=== PATIENT | female | born 1990 | race Caucasian/White ===

== ENCOUNTER 2017-03-06 15:49 | Inpatient (IN) | payer OTHER ==
[~2017-03-06 15:49] MED LIST: ALBUAER3 INH; CEPH-460 PO; DEXAMETHASONE SOD PHOS 4 MG/ML VIAL IV ONE; LACTATED RINGER'S 1000 ML INJ 1,000 ML IV ONE; MORPHINE SULFATE PF 5 MG/10 ML VIAL EPIDURAL ONE; ONDANSETRON HCL 4 MG/2 ML VIAL IV PUSH ONE; OXYTOCIN 10 UNIT/ML AMP IV ONE; PHENYLEPH/NS 1000 MCG/10 ML SYR IV ONE; PRED20 PO; ZOFR4TAB3 SL; ePHEDrine/NS 25 MG/5 ML SYR IV ONE
--- NOTE | 2017-03-06 16:14 | PD ---
HPI Chief Complaint decreased FM sent from [place] Date Seen: Mar 06, 2017 Time Seen: 16:14 Travel History International Travel<30 Days: No Contact w/Intl Traveler<30Days: No Known Affected Area: No Allergies-Medications (Allergen,Severity, Reaction): Coded Allergies: amoxicillin (Verified Allergy, Severe, 03/06/17) aspirin (Verified Allergy, Severe, 03/06/17) azithromycin (Verified Allergy, Severe, 03/06/17) penicillin G (Verified Allergy, Severe, 03/06/17) Home Meds Active Scripts Cephalexin (Keflex) 500 Mg Capsule, 500 MG PO Q6H for Infection, #28 CAP 0 Refills Prov:Chitar Montgomery MD 02/27/17 Prednisone (Prednisone) 20 Mg Tab, 40 MG PO DAILY for 5 Days, #10 TAB 0 Refills Take 40 mg (2 tablets) daily for 5 days Prov:Ar Silva MD 02/05/17 Reported Medications Albuterol 8.5 GM Inh (Proair Hfa 8.5 GM Inh) 90 Mcg/Act Aer, 2 PUFF INH Q4-6H Y for SHORTNESS OF BREATH, #1 INHALER 0 Refills 108 mcg/actuation 02/05/17 Discontinued Scripts Ondansetron Odt (Zofran Odt) 4 Mg Tab, 4 MG SL Q6HR Y for Nausea/Vomiting, #6 TAB 0 Refills Prov:Chitra Montgomery MD 02/27/17 Physical Exam Narrative GENERAL: Well-nourished, well-developed patient. SKIN: Warm and dry. HEAD: Normocephalic and atraumatic. EYES: No scleral icterus. No injection or drainage. ENT: No nasal drainage noted. Mucous membranes pink. Airway patent. NECK: Supple, trachea midline. No JVD. CARDIOVASCULAR: Regular rate and rhythm without murmurs, gallops, or rubs. RESPIRATORY: Breath sounds equal bilaterally. No accessory muscle use. BREASTS: Bilateral exam showed no masses , no retractions, no nipple discharge. ABDOMEN/GI: Abdomen soft, non-tender, bowel sounds present, no rebound, no guarding Gravid to [-] weeks size Fundal Height: [-] GENITOURINARY: External Genitalia: intact and normal in appearance BUS glands: [-] Cervix: [-] Dilatation: [-] Effacement: [-] Station: [-] Presentation: [-] Membranes: [intact or ruptured] Uterine Contractions: [-] FHT's: Category: [-] Baseline: [-] Reactive: [-] Variability: [-] Decels: [-] EXTREMITIES: No cyanosis or edema. BACK: Nontender without obvious deformity. No CVA tenderness. NEUROLOGICAL: Awake and alert. Motor and sensory grossly within normal limits. Five out of 5 muscle strength in all muscle groups. Normal speech. Data Data Orders Orders Us Ob Bpp Wo Nst (03/06/17 16:12) Donald Swartz II, MD Mar 06, 2017 16:14
[2017-03-06] MEDS ORDERED: LACTATED RINGER'S 1000 ML INJ 1,000 ML IV ONE (16:28)
[2017-03-06 16:42] LABS: AUTOMATED NEUTROPHIL # 10.3 TH/MM3 (1.8-7.7); BASOPHIL # 0.1 TH/MM3 (0-0.2); BASOPHIL % 0.6 % (0.0-2.0); EOSINOPHIL # 0.4 TH/MM3 (0-0.4); EOSINOPHIL % 2.6 % (0.0-4.0); HEMATOCRIT 33.7 % (35.0-46.0); HEMO FLAGS DIFF FINAL; LYMPH % 16.5 % (9.0-44.0); LYMPHOCYTE # 2.3 TH/MM3 (1.0-4.8); MEAN CELL VOLUME 84.8 FL (80.0-100.0); MEAN CORPUSCULAR HEMOGLOBIN 27.5 PG (27.0-34.0); MEAN CORPUSCULAR HGB CONC 32.5 % (32.0-36.0); MONO % 6.7 % (0.0-8.0); NEUT % 73.6 % (16.0-70.0); PLATELET COUNT 337 TH/MM3 (150-450); RED BLOOD COUNT 3.97 MIL/MM3 (4.00-5.30); RED CELL DISTRIBUTION WIDTH 14.8 % (11.6-17.2)
--- NOTE | 2017-03-06 16:45 | HHI.HP ---
HPI Chief Complaint Decreased movement for here from [place] emergency room Date Seen: Mar 06, 2017 Time Seen: 16:40 Travel History International Travel<30 Days: No Contact w/Intl Traveler<30Days: No Known Affected Area: No History of Present Illness HPI Patient is 26-year-old white female at 35-36 weeks is her care at [place] presents complaining of decreased movement. She had definite movement yesterday but today is noted no movement whatsoever. She' s had an uneventful obstetric course to date and had care [place] was planning to deliver there vaginally says she's delivered her other 3 vaginally. However today here on OB ED she was transferred from [place] here she has repetitive large variable decelerations on her strip. The variability is good however she sporadically has a large deep drop in the heart rate stays down a minute or so it comes back up she comes repetitively over the last 30 minutes Weeks Gestation: 36 Para: 3 : 4 History Past Medical History Narrative Medical asthma uses inhaler Obstetric History Obstetric History 3 vaginal deliveries Past Surgical History Narrative Surgical LEEP for cx dysplasia Social History Alcohol Use: No Tobacco Use: No Substance Abuse: No Allergies-Medications (Allergen,Severity, Reaction): Coded Allergies: amoxicillin (Verified Allergy, Severe, 03/06/17) aspirin (Verified Allergy, Severe, 03/06/17) azithromycin (Verified Allergy, Severe, 03/06/17) penicillin G (Verified Allergy, Severe, 03/06/17) Home Meds Active Scripts Cephalexin (Keflex) 500 Mg Capsule, 500 MG PO Q6H for Infection, #28 CAP 0 Refills Prov:Chitra Montgomery MD 02/27/17 Prednisone (Prednisone) 20 Mg Tab, 40 MG PO DAILY for 5 Days, #10 TAB 0 Refills Take 40 mg (2 tablets) daily for 5 days Prov:Ar Silva MD 02/05/17 Reported Medications Albuterol 8.5 GM Inh (Proair Hfa 8.5 GM Inh) 90 Mcg/Act Aer, 2 PUFF INH Q4-6H Y for SHORTNESS OF BREATH, #1 INHALER 0 Refills 108 mcg/actuation 02/05/17 Discontinued Scripts Ondansetron Odt (Zofran Odt) 4 Mg Tab, 4 MG SL Q6HR Y for Nausea/Vomiting, #6 TAB 0 Refills Prov:Chitra Montgomery MD 02/27/17 Review of Systems General / Constitutional: No: Fever, Weight Gain, Chills, Other Eyes: No: Diploplia, Blurred Vision, Visual changes, Pain, Photophobia HENT: No: Headaches, Vertigo, Lightheadedness Cardiovascular: No: Irregular Rhythm, Chest Pain or Discomfort, Palpitations, Tachycardia, Syncope, Varicosities, Edema, Cyanosis Respiratory: No: Cough, Short of Breath, Other Gastrointestinal: No: Nausea, Vomiting, Diarrhea Genitourinary: No: Decreased Urinary Output, Oliguria Musculoskeletal: No: Limited ROM, Weakness, Cramping, Edema, Pain Skin: No Rash, No Itching, No Dryness, No Lumps, No Change in Pigmentation, No Change in Nails, No Alopecia, No Lesions Neurologic: No: Weakness, Dizziness, Syncope, Focal Abnormalities, Coordination Problem, Headache, Slurred Speech, Seizures Psychiatric: No: Depression, Suicidal Ideations, Homicidal Ideation Endocrine: No: Heat Intolerance, Cold Intolerance, Polydipsia, Polyuria, Other Physical Exam Narrative GENERAL: Well-nourished, well-developed patient. SKIN: Warm and dry. HEAD: Normocephalic and atraumatic. EYES: No scleral icterus. No injection or drainage. ENT: No nasal drainage noted. Mucous membranes pink. Airway patent. NECK: Supple, trachea midline. No JVD. CARDIOVASCULAR: Regular rate and rhythm without murmurs, gallops, or rubs. RESPIRATORY: Breath sounds equal bilaterally. No accessory muscle use. BREASTS: Bilateral exam showed no masses , no retractions, no nipple discharge. ABDOMEN/GI: Abdomen soft, non-tender, bowel sounds present, no rebound, no guarding Gravid to [-36] weeks size Fundal Height: [-36] GENITOURINARY: External Genitalia: intact and normal in appearance BUS glands: [-] Cervix: [0-] Dilatation: [0-] Effacement: [-0] Station: [-3] Presentation: [vtx-] Membranes: [intact ] Uterine Contractions: [none-] FHT's: Category: [2-] Baseline: [-133] Reactive: [no-] Variability: [-mod] Decels: [-REPETITIVE variables spontaneously] EXTREMITIES: No cyanosis or edema. BACK: Nontender without obvious deformity. No CVA tenderness. NEUROLOGICAL: Awake and alert. Motor and sensory grossly within normal limits. Five out of 5 muscle strength in all muscle groups. Normal speech. Caprini VTE Risk Assessment Caprini VTE Risk Assessment: No/Low Risk (score <= 1) Caprini Risk Assessment Model Point Value = 1 Point Value = 2 Point Value = 3 Point Value = 5 Age 41-60 Minor surgery BMI > 25 kg/m2 Swollen legs Varicose veins or History of unexplained or recurrent spontaneous Oral contraceptives or hormone replacement Sepsis (< 1 month) Serious lung disease, including pneumonia (< 1 month) Abnormal pulmonary function Acute myocardial infarction Congestive heart failure (< 1 month) History of inflammatory bowel disease Medical patient at bed rest Age 61-74 Arthroscopic surgery Major open surgery (> 45 min) Laparoscopic surgery (> 45 min) Malignancy Confined to bed (> 72 hours) Immobilizing plaster cast Central venous access Age >= 75 History of VTE Family history of VTE Factor V Leiden Prothrombin [id number] Lupus anticoagulant Anticardiolipin antibodies Elevated serum homocysteine Heparin-induced thrombocytopenia Other congenital or acquired thrombophilia Stroke (< 1 month) Elective arthroplasty Hip, pelvis, or leg fracture Acute spinal cord injury (< 1 month) Prophylaxis Regimen Total Risk Factor Score Risk Level Prophylaxis Regimen 0-1 Low Early ambulation 2 Moderate Order ONE of the following: *Sequential Compression Device (SCD) *Heparin 5000 units SQ BID 3-4 Higher Order ONE of the following medications: *Heparin 5000 units SQ TID *Enoxaparin/Lovenox 40 mg SQ daily (WT < 150 kg, CrCl > 30 mL/min) *Enoxaparin/Lovenox 30 mg SQ daily (WT < 150 kg, CrCl > 10-29 mL/min) *Enoxaparin/Lovenox 30 mg SQ BID (WT < 150 kg, CrCl > 30 mL/min) AND/OR *Sequential Compression Device (SCD) 5 or more Highest Order ONE of the following medications: *Heparin 5000 units SQ TID (Preferred with Epidurals) *Enoxaparin/Lovenox 40 mg SQ daily (WT < 150 kg, CrCl > 30 mL/min) *Enoxaparin/Lovenox 30 mg SQ daily (WT < 150 kg, CrCl > 10-29 mL/min) *Enoxaparin/Lovenox 30 mg SQ BID (WT < 150 kg, CrCl > 30 mL/min) AND *Sequential Compression Device (SCD) Data Data Orders Orders Us Ob Bpp Wo Nst (03/06/17 16:12) Ob (2e) Additional Admit Info (03/06/17 16:28) Admit To Inpatient (03/06/17 ) Vital Signs (Adult) .ON ADMISSION (03/06/17 16:28) Activity Oob Ad Mikayla (03/06/17 16:28) Heart (03/06/17 16:28) Urinary Catheter Management HAZEL.Q8H (03/06/17 16:28) ^ Preps (03/06/17 16:28) Scd / Edi / Foot Pump HAZEL.QSHIFT (03/06/17 16:28) ^ Ultrasound For Locatio (03/06/17 16:28) Diet Npo (03/06/17 Dinner) Lactated Ringer's 1000 Ml Inj (Lr 1000 M (03/06/17 16:28) Lactated Ringer's 1000 Ml Inj (Lr 1000 M (03/06/17 17:00) Citric Acid-Sodium Citrate Liq (Bicitra (03/06/17 18:00) Type And Screen (03/06/17 16:28) Complete Blood Count With Diff (03/06/17 16:28) Urinalysis - C+S If Indicated (03/06/17 16:28) Labs Laboratory Tests Test 03/06/17 16:25 Assessment/Plan Assessment and Plan Patient is 26-year-old white female 35-36 weeks of resents with decreased movement referred from the [place] ER. The patient had no prior problem UNTIL today when the baby stopped moving altogether. Here on OB ED heart rate tracing shows large spontaneous variables that are wide and deep. There bleeding monitor strip shows moderate to good heart rate variability however these large decelerations are forcing urgent delivery Impressions decreased movement at 35-36 weeks with large repetitive variable decelerations and nonreassuring heart rate tracing Plan is transabdominal delivery Donald Swartz II, MD Mar 06, 2017 16:45
[2017-03-06] MEDS ORDERED: CLINDAMYCIN PHOS 600 MG/4 ML VIAL ONE (16:50)
[2017-03-06 16:55] LABS: BACTERIA, URINE RARE /hpf; BLOOD, URINE NEG (NEG); GLUCOSE,URINE NEG (NEG); KETONE, URINE NEG (NEG); NITRITE,URINE NEG (NEG); PH, URINE 7.5 (5.0-8.5); SQUAMOUS EPITHELIAL CELL URINE 1 /hpf (0-5); URINE COLOR LIGHT-YELLOW (YELLW/STRAW)
[2017-03-06 16:58] LABS: COMMENT (UR) CATH-CULTURE IND; CULTURE IF INDICATED CATH CULTURE IND
[2017-03-06] MEDS ORDERED: LACTATED RINGER'S 1000 ML INJ 1,000 ML IV SCH ×2 (17:00→22:55)
[2017-03-06] MEDS ORDERED: ONDANSETRON HCL 4 MG/2 ML VIAL IV PUSH PRN (18:00)
[2017-03-06] MEDS ORDERED: oxyCODONE/ACETAMINOPHEN 5 MG/325 MG TAB PO PRN (18:00)
[2017-03-06] MEDS ORDERED: ACETAMINOPHEN 325 MG TAB PO PRN (18:00)
[2017-03-06] MEDS ORDERED: OXYTOCIN 30 UNITS-500ML PREMIX 500 ML IV ONE (18:00)
[2017-03-06] MEDS ORDERED: ZOLPIDEM TARTRATE 5 MG TAB PO PRN (18:00)
[2017-03-06] MEDS ORDERED: CITRIC ACID-SODIUM CITRATE LIQ 30 ML UDC PO SCH (18:00)
[2017-03-06] MEDS ORDERED: IBUPROFEN 600 MG TAB PO PRN (18:00)
[2017-03-06] MEDS ORDERED: SODIUM CHLORIDE 0.9% FLUSH 10 ML FLUSH IV FLUSH PRN (18:00)
[2017-03-06] MEDS ORDERED: SIMETHICONE 80 MG CHEWABLE TAB PO PRN (18:00)
--- NOTE | 2017-03-06 19:20 | MP ---
cc: CARMEN SWARTZ MD DATE OF SURGERY: 03/06/2017. PREOPERATIVE DIAGNOSIS: 1. Non-reassuring heart rate tracing. 2. Decreased movement. POSTOPERATIVE DIAGNOSIS: 1. Non-reassuring heart rate tracing. 2. Decreased movement. 3. Oligohydramnios. OPERATION: Primary low transverse section. SURGEON: Carmen Swartz MD. FABRIC STRETCHER: Dr. Trent, [facility]. ANESTHESIA: Spinal. PREOPERATIVE NOTE: The patient is a 26-year-old 4, para 3 at 35 to 36 weeks who presents by referral from the [facility] for absent movement. Once monitored on the PITO unit, large deep variable decelerations were noted on a repetitive basis that stimulated us to move towards section for delivery for this baby. DESCRIPTION OF THE PROCEDURE IN DETAIL: The patient was taken to the operating room and placed in the supine position on the operating room table. Adequate spinal anesthesia was administered. She was prepped and draped for abdominal surgery. A Pfannenstiel incision was made in the lower abdomen and carried to the fascia, sharply through the and fascia dissected off the rectus muscle and the rectus split in the midline. The peritoneal cavity was entered sharply. The incision was extended superiorly and inferiorly. The bladder blade was placed in the lower edge of the incision. The visceral peritoneum was reflected off the lower uterine segment and placed onto the bladder blade. A transverse hysterotomy was made and extended bluntly bilaterally and a female infant was delivered at 5:04 p.m. weight 2100 grams, Apgars of 9 and 9. There were no complications to the delivery. We attempted to get a cord gas but that clotted off and could not be done. Cord blood was drawn off the placenta of her baby. The placenta was sent to pathology. The uterus was exteriorized. The hysterotomy was closed in a running layer of 0 chromic followed by imbricating suture of the same. Hemostasis was achieved with several stick ties at the angle and in the midline. The bladder was reapproximated using 2-0 Vicryl in a running suture. The uterus was elevated and blood suctioned from the cul-de-sac. The uterus was replaced in the abdominal cavity. The parietal peritoneum was closed in a running layer of 2-0 Vicryl. The rectus muscle was reapproximated with stick ties of #0 chromic. The fascia was then closed in a running layer of 0 Vicryl. The subcutaneous tissues were reapproximated with 3-0 plain catgut suture in a running suture. The skin was closed with 3-0 Monocryl in a subcuticular stitch. Pressure dressing was applied. The estimated blood loss was 500 cc. There were no complications. Sponge and needle counts were correct x 2 and the patient went to recovery in stable condition. MD BECKY Fernandez/JOSEPH /6:23 PM /7:09 PM
[2017-03-06] MEDS ORDERED: diphenhydrAMINE HCL 50 MG/ML VIAL ONE (20:55)
[2017-03-06] MEDS ORDERED: SODIUM CHLORIDE 0.9% FLUSH 10 ML FLUSH IV FLUSH SCH (21:00)
[2017-03-06] MEDS ORDERED: ACETAMINOPHEN 1000 MG/100 ML VIAL IV ONE (21:45)
[2017-03-06] MEDS ORDERED: CLINDAMYCIN INJ 600 MG in SODIUM CHLORIDE 0.9% INJ 100 ML IV SCH (23:00)
[2017-03-07] MEDS ORDERED: CLINDAMYCIN 600 MG/NS 100 ML IV SCH ×4 (03:00→14:00)
[2017-03-07] MEDS: oxyCODONE/ACETAMINOPHEN 5 MG/325 MG TAB PO PRN ×4 (03:16→21:48)
[2017-03-07] MEDS ORDERED: OXYTOCIN 30 UNITS-500ML PREMIX 500 ML IV PRN (04:00)
[2017-03-07 05:54] LABS: AUTOMATED NEUTROPHIL # 15.5 TH/MM3 (1.8-7.7); BASOPHIL % 0.1 % (0.0-2.0); HEMATOCRIT 26.6 % (35.0-46.0); HEMO FLAGS DIFF FINAL; LYMPH % 8.1 % (9.0-44.0); LYMPHOCYTE # 1.5 TH/MM3 (1.0-4.8); MEAN CELL VOLUME 84.5 FL (80.0-100.0); MEAN CORPUSCULAR HGB CONC 33.1 % (32.0-36.0); MONO % 6.7 % (0.0-8.0); NEUT % 85.1 % (16.0-70.0); PLATELET COUNT 292 TH/MM3 (150-450); RED BLOOD COUNT 3.15 MIL/MM3 (4.00-5.30); RED CELL DISTRIBUTION WIDTH 14.8 % (11.6-17.2); WHITE BLOOD COUNT 18.2 TH/MM3 (4.0-11.0)
[2017-03-07 06:36] LABS: RUBELLA STATUS IMMUNE (IMMUNE)
[2017-03-07] MEDS: DOCUSATE SODIUM 50 MG/SENNA 8.6 MG TAB PO PRN (07:50)
--- NOTE | 2017-03-07 09:46 | HHI.OB ---
Subjective Post Operative Day: 1 Remarks Postoperative day number 1. AFVSS overnight. Pain controlled. Incision not draining. Decreased lochia. Denies dysuria. No breast tenderness. Appetite good. No nausea or vomiting. Positive flatus. No bowel movement. Ambulating well. Denies calf pain, shortness of breath, or cough. Otherwise, she is doing well this morning and has no other complaints. Objective Result Diagram: 03/07/17 0416 Objective Remarks GENERAL: Well-nourished, well-developed patient. CARDIOVASCULAR: Regular rate and rhythm without murmurs, gallops, or rubs. RESPIRATORY: Breath sounds equal bilaterally. No accessory muscle use. ABDOMEN/GI: Abdomen soft, non-tender, bowel sounds present. Incision: Clean, dry and intact. Fundus: Firm, non-tender at umbilicus. GENITOURINARY: Light to moderate bleeding. EXTREMITIES: No cyanosis or edema, non-tender, without signs of DVT. Medications and IVs Current Medications Medications (Trade) Dose Ordered Sig/Clare Route Start Time Stop Time Status Last Admin Lactated Ringer's 1,000 ml @ 100 mls/hr Q10H IV 03/06/17 22:55 03/07/17 18:54 03/07/17 03:15 Oxytocin 500 ml @ 100 mls/hr UNSCH X1 PRN IV 03/07/17 04:00 03/08/17 03:59 (NS Flush) 2 ml BID IV FLUSH 03/06/17 21:00 (NS Flush) 2 ml UNSCH PRN IV FLUSH 03/06/17 18:00 (Mylicon Chew) 80 mg QID PRN PO 03/06/17 18:00 (Tylenol) 650 mg Q6H PRN PO 03/06/17 18:00 (Percocet 5-325 Mg) 1 tab Q4H PRN PO 03/06/17 18:00 (Percocet 5-325 Mg) 2 tab Q4H PRN PO 03/06/17 18:00 03/07/17 07:51 (Salina-Colace) 2 tab Q12H PRN PO 03/06/17 18:00 03/07/17 07:50 (Ambien) 5 mg HS PRN PO 03/06/17 18:00 (M-M-R Ii Inj) 0.5 ml ONCE ONCE SQ 03/07/17 16:00 03/07/17 16:01 (Boostrix Inj) 0.5 ml ONCE ONCE IM 03/07/17 16:00 03/07/17 16:01 (Zofran Inj) 4 mg Q6H PRN IV PUSH 03/06/17 18:00 03/06/17 21:20 Assessment/Plan Assessment and Plan 26y/o female who is POD#1 s/p CXN due to recurrent decelerations. -Continue routine care. -Percocet and Motrin PRN pain. -Encouraged OOB. Advised pelvic rest for 6 wks. Will need a f/u appt. in 1 wk for incision check. -Re: ctrl, she is undecided -D/c in 1-2 more days. dw OB attending Grant Lindquist MD, R2 Mar 07, 2017 09:46
[2017-03-07] MEDS ORDERED: SODIUM CHLORID 0.9% 500 ML INJ 500 ML IV ONE (12:30)
[2017-03-07] MEDS ORDERED: IBUPROFEN 600 MG TAB PO PRN (12:30)
[2017-03-07] MEDS ORDERED: DIPHTH/TETANUS/ACEL PERTUSSIS (BOOSTER) 0.5 ML VIAL/PFS IM ONE (16:00)
[2017-03-07] MEDS ORDERED: MEASLES, MUMPS, RUBELLA VACCINE 0.5 ML VIAL SQ ONE (16:00)
[2017-03-08] MEDS: DOCUSATE SODIUM 50 MG/SENNA 8.6 MG TAB PO PRN ×2 (02:11→17:08)
[2017-03-08] MEDS: oxyCODONE/ACETAMINOPHEN 5 MG/325 MG TAB PO PRN ×5 (02:11→21:33)
[2017-03-08 08:30] VITALS: BP 94/57; PULSE 96; RESP 20; TEMP 98.1
[2017-03-08] MEDS ORDERED: ALBUTEROL SULFATE 90 MCG/ACT HFA 8 GM INHALER INH SCH (12:00)
--- NOTE | 2017-03-08 14:25 | HHI.OB ---
Subjective Post Day: 2 Remarks Postoperative day number 2. AFVSS overnight. Pain controlled with pain medication. Incision not draining. Decreased lochia. Denies dysuria. No breast tenderness. Appetite good. No nausea or vomiting. Passing flatus. No bowel movement. Ambulating well. Denies calf pain, shortness of breath, or cough. Otherwise, she is doing well this morning and has no other complaints. Objective Objective Remarks GENERAL: Well-nourished, well-developed patient. CARDIOVASCULAR: Regular rate and rhythm without murmurs, gallops, or rubs. RESPIRATORY: Breath sounds equal bilaterally. No accessory muscle use. Mild wheezing heard bilaterally. ABDOMEN/GI: Abdomen soft, non-tender. Fundus: Firm, non-tender at umbilicus. Incision site clean, dry, intact. GENITOURINARY: Light to moderate bleeding. EXTREMITIES: No cyanosis or edema, non-tender, without signs of DVT. Medications and IVs Current Medications Medications (Trade) Dose Ordered Sig/Clare Route Start Time Stop Time Status Last Admin (NS Flush) 2 ml BID IV FLUSH 03/06/17 21:00 (NS Flush) 2 ml UNSCH PRN IV FLUSH 03/06/17 18:00 (Mylicon Chew) 80 mg QID PRN PO 03/06/17 18:00 (Tylenol) 650 mg Q6H PRN PO 03/06/17 18:00 03/07/17 12:47 (Percocet 5-325 Mg) 1 tab Q4H PRN PO 03/06/17 18:00 (Percocet 5-325 Mg) 2 tab Q4H PRN PO 03/06/17 18:00 03/08/17 12:20 (Salina-Colace) 2 tab Q12H PRN PO 03/06/17 18:00 03/08/17 02:11 (Ambien) 5 mg HS PRN PO 03/06/17 18:00 (Zofran Inj) 4 mg Q6H PRN IV PUSH 03/06/17 18:00 03/06/17 21:20 (Proair Hfa Inh) 2 puff Q6HR INH 03/08/17 12:00 03/08/17 11:58 Assessment/Plan Assessment and Plan 26y/o female who is POD#2 s/p CXN due to recurrent decelerations. //Post- -Continue routine care. -Percocet and Motrin PRN pain. -Encouraged OOB. Advised pelvic rest for 6 wks. Will need a f/u appt. in 1 wk for incision check. -Re: ctrl, she is undecided -D/c in 1 more day //Wheezing -COPD hx per patient -Albuterol PRN for wheezing Dilma Hi MD R1 Mar 08, 2017 14:25
[2017-03-08 20:40] VITALS: BP 94/55; PULSE 84; RESP 16; TEMP 99.5
[2017-03-09] MEDS: oxyCODONE/ACETAMINOPHEN 5 MG/325 MG TAB PO PRN ×3 (02:58→12:28)
[2017-03-09 03:00] VITALS: RESP 18
[2017-03-09 08:20] VITALS: BP 114/61; PULSE 65; RESP 16; TEMP 98.1
[2017-03-09] MEDS: DOCUSATE SODIUM 50 MG/SENNA 8.6 MG TAB PO PRN (08:26)
--- NOTE | 2017-03-09 09:48 | HHI.OB ---
Subjective Post Operative Day: 3 Remarks Postoperative day number 3. AFVSS overnight. Pain controlled with medications. Incision not draining. Decreased lochia. Denies dysuria. No breast tenderness. She is feeding the baby via breast. Appetite good. No nausea or vomiting. Endorses flatus. No bowel movement. Ambulating well. Denies calf pain, shortness of breath, or cough. Otherwise, she is doing well this morning and has no other complaints. Objective Result Diagram: 03/07/17 0416 Objective Remarks GENERAL: Well-nourished, well-developed patient. CARDIOVASCULAR: Regular rate and rhythm without murmurs, gallops, or rubs. RESPIRATORY: Breath sounds equal bilaterally. No accessory muscle use. ABDOMEN/GI: Abdomen soft, non-tender, bowel sounds present. Incision: Clean, dry and intact. Fundus: Firm, non-tender at umbilicus. GENITOURINARY: Light to moderate bleeding. EXTREMITIES: No cyanosis or edema, non-tender, without signs of DVT. Medications and IVs Current Medications Medications (Trade) Dose Ordered Sig/Clare Route Start Time Stop Time Status Last Admin (NS Flush) 2 ml BID IV FLUSH 03/06/17 21:00 (NS Flush) 2 ml UNSCH PRN IV FLUSH 03/06/17 18:00 (Mylicon Chew) 80 mg QID PRN PO 03/06/17 18:00 03/08/17 21:36 (Tylenol) 650 mg Q6H PRN PO 03/06/17 18:00 03/07/17 12:47 (Percocet 5-325 Mg) 1 tab Q4H PRN PO 03/06/17 18:00 (Percocet 5-325 Mg) 2 tab Q4H PRN PO 03/06/17 18:00 03/09/17 08:26 (Salina-Colace) 2 tab Q12H PRN PO 03/06/17 18:00 03/09/17 08:26 (Ambien) 5 mg HS PRN PO 03/06/17 18:00 (Zofran Inj) 4 mg Q6H PRN IV PUSH 03/06/17 18:00 03/06/17 21:20 (Proair Hfa Inh) 2 puff Q6HR INH 03/08/17 12:00 03/08/17 11:58 Assessment/Plan Assessment and Plan 26y/o female who is POD#3 s/p CXN due to recurrent decelerations. -Continue routine care. -Percocet and Motrin PRN pain. -Encouraged OOB. Advised pelvic rest for 6 wks. Will need a f/u appt. in 1 wk for incision check. -Re: ctrl, she is undecided -D/c today Wheezing -COPD hx per patient -Albuterol PRN for wheezing dw Dr. Maxime Lindquist,Grant Ortiz MD, R2 Mar 09, 2017 09:48
[2017-03-09] MEDS ORDERED: ACET1TAB86 PO (09:50)
[2017-03-09] MEDS ORDERED: OXYC1TAB63 PO (09:50)
[2017-03-09] MEDS ORDERED: SENN1TAB PO (09:50)
--- NOTE | 2017-03-09 09:51 | HHI.DCPOC ---
Discharge Care Plan Diagnosis: (1) Delivery by emergency section Report Symptoms to Your Doctor -Temperature above 100.5 degrees -Redness, of incision or excessive or foul smelling drainage -Unusual pain or calf pain -Increased vaginal bleeding -Painful or difficulty urinating -Feelings of extreme sadness or anxiety after 2 weeks Goals to Promote Your Health * To prevent worsening of your condition and complications * To maintain your health at the optimal level Directions to Meet Your Goals Take your medications as prescribed Follow your dietary instruction Follow activity as directed Ensure plenty of rest for recovery Drink fluids for hydration Keep your appointments as scheduled Take your immunizations and boosters as scheduled If your symptoms worsen call your PCP, if no PCP go to Urgent Care Center or Emergency Room Smoking is Dangerous to Your Health. Avoid second hand smoke Call the 24-hour crisis hotline for domestic abuse at Grant Lindquist MD, R2 Mar 09, 2017 09:51
[2017-03-11 09:05] LABS: PHENCYCLIDINE URINE NEG (NEG)
[2017-03-11 09:06] LABS: BATH SALTS (MDPV) UR NEG (NEG); ECSTASY (MDMA) UR NEG (NEG); GABAPENTIN UR NEG (NEG); HEROIN (6-ACETYLMORPHINE) UR NEG (NEG); HYDROMORPHONE U NEG (NEG); K2 SPICE UR NEG (NEG); OBMETHADONE UR NEG (NEG)
== END 2017-03-09 13:30 | disposition home or self-care (01) | DRG 765 ==
LOC: HOBED 15:49 → H2EB 16:29 → H1EA 19:49
PROVIDERS: ADMIT Obstetrics & Gynecology Maternal & Fetal Medicine; ATTEND Obstetrics & Gynecology Maternal & Fetal Medicine
PROC: 10D00Z1 Extraction of Products of Conception, Low, Open Approach (ICD-10-PCS; principal; 2017-03-06)
DX: O36.8130 Decreased fetal movements, third trimester, not applicable or unspecified (principal); O41.03X0 Oligohydramnios, third trimester, not applicable or unspecified; O76 Abnormality in fetal heart rate and rhythm complicating labor and delivery; O99.52 Diseases of the respiratory system complicating childbirth; J44.9 Chronic obstructive pulmonary disease, unspecified; Z37.0 Single live birth; Z3A.36 36 weeks gestation of pregnancy
CPT/HCPCS: 59025; 80074; 80307; 81001; 85025; 86592; 86703; 86762; 86850; 86900; 86901; 87086; 88307; G0481; J1100; J1200; J2274; J2370; J2405; J2590; J3010; J7040; J7120

== ENCOUNTER 2017-11-24 22:40 | Emergency (ER) | payer MEDICAID, OTHER ==
[~2017-11-24 22:40] MED LIST changes: +ACET325T15 PO; -CEPH-460 PO; -DEXAMETHASONE SOD PHOS 4 MG/ML VIAL IV ONE; -LACTATED RINGER'S 1000 ML INJ 1,000 ML IV ONE; -MORPHINE SULFATE PF 5 MG/10 ML VIAL EPIDURAL ONE; -ONDANSETRON HCL 4 MG/2 ML VIAL IV PUSH ONE; +OXYC1TAB63 PO; -OXYTOCIN 10 UNIT/ML AMP IV ONE; -PHENYLEPH/NS 1000 MCG/10 ML SYR IV ONE; -PRED20 PO; +SENN1TAB PO; -ZOFR4TAB3 SL; -ePHEDrine/NS 25 MG/5 ML SYR IV ONE
[2017-11-25] MEDS ORDERED: CEPH-460 PO (04:36)
== END 2017-11-24 23:08 | disposition left against medical advice (07) ==
LOC: NED 22:40
DX: R06.02 Shortness of breath (principal); R07.9 Chest pain, unspecified; Z53.21 Procedure and treatment not carried out due to patient leaving prior to being seen by health care provider
CPT/HCPCS: 99281

== ENCOUNTER 2018-03-21 07:46 | Inpatient (IN) ==
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
[2018-03-21 08:42] LABS: Baso # (Auto) 0.1 th/mm3 (0.0-0.2); Baso % (Auto) 0.6 % (0.0-2.0); Eos # (Auto) 0.6 th/mm3 (0.0-0.4); Eos % (Auto) 4.9 % (0.0-4.0); Hematocrit 35.3 % (35.0-46.0); Hemoglobin 11.8 gm/dL (11.6-15.3); Lymph # (Auto) 2.1 th/mm3 (1.0-4.8); Lymph % (Auto) 17.2 % (9.0-44.0); Mean Corpuscular HGB Conc 33.5 % (32.0-36.0); Mean Corpuscular Hemoglobin 27.6 pg (27.0-34.0); Mean Corpuscular Volume 82.3 fL (80.0-100.0); Mean Platelet Volume 7.3 fL (7.0-11.0); Mono # (Auto) 0.5 th/mm3 (0.0-0.9); Mono % (Auto) 4.4 % (0.0-8.0); Neut # (Auto) 8.7 th/mm3 (1.8-7.7); Neut % (Auto) 72.9 % (16.0-70.0); Platelet Count 260 th/mm3 (150-450); Red Cell Distribution Width 13.6 % (11.6-17.2)
[2018-03-21 08:50] LABS: Albumin 3.4 g/dL (3.4-5.0); Anion Gap 10 meq/L (5-15); Aspartate Aminotransferase 68 U/L (15-37); Blood Urea Nitrogen 7 mg/dL (7-18); Chloride 107 meq/L (98-107); Glomerular Filtration Rate Greater Than 89 mL/min (>89); Glucose,Random 88 mg/dL (74-106); Potassium 3.8 meq/L (3.5-5.1); Sodium 139 meq/L (136-145)
[2018-03-21 09:08] LABS: Alanine Aminotransferase 55 U/L (10-53); Alkaline Phosphatase 79 U/L (45-117); Beta HCG,Quantitative 95307 mIU/mL (0-5); Total Protein 6.9 g/dL (6.4-8.2)
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
[2018-03-21 10:13] LABS: Eosinophils 4 % (0-4); Lymphocytes 18 % (9-44); Monocytes 3 % (0-8); Platelet Estimate Normal (Normal); Platelet Morphology Clumped (Normal)
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
[2018-03-21] MEDS ORDERED: Morphine Inj 4 MG/ML Vial IV.PUSH ONE (11:19)
[2018-03-21] MEDS ORDERED: Acetaminophen 325 MG Tablet PO PRN (11:55)
[2018-03-21] MEDS: Morphine Sulfate Inj 2 MG/ML Vial IV.PUSH PRN (20:59)
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
[2018-03-21 23:35] VITALS: RESP 18
[2018-03-22] MEDS: Morphine Sulfate Inj 2 MG/ML Vial IV.PUSH PRN (02:25)
[2018-03-22] MEDS ORDERED: Chlorhexidine Gluconate 2% 1 Pack (2 Cloths) TOPICAL PRN (04:00)
[2018-03-22] MEDS ORDERED: Chlorhexidine Gluconate 2% 1 Pack (2 Cloths) TOPICAL SCH (04:00)
[2018-03-22] MEDS ORDERED: Morphine Sulfate Inj 2 MG/ML Vial IV.PUSH PRN (06:09)
[2018-03-22] MEDS ORDERED: Sod Chloride 0.9% Inj 1,000 ML IV.CONT SCH (06:15)
[2018-03-22 07:49] LABS: Baso # (Auto) 0.1 th/mm3 (0.0-0.2); Baso % (Auto) 0.9 % (0.0-2.0); Eos # (Auto) 0.6 th/mm3 (0.0-0.4); Eos % (Auto) 9.5 % (0.0-4.0); Hemoglobin 11.9 gm/dL (11.6-15.3); Lymph % (Auto) 33.7 % (9.0-44.0); Mean Corpuscular Hemoglobin 28.2 pg (27.0-34.0); Mean Corpuscular Volume 83.1 fL (80.0-100.0); Mean Platelet Volume 7.4 fL (7.0-11.0); Mono # (Auto) 0.4 th/mm3 (0.0-0.9); Mono % (Auto) 7.2 % (0.0-8.0); Neut % (Auto) 48.7 % (16.0-70.0); Platelet Count 242 th/mm3 (150-450); Red Blood Count 4.21 mil/mm3 (4.00-5.30); Red Cell Distribution Width 13.9 % (11.6-17.2); White Blood Count 6.1 th/mm3 (4.0-11.0)
[2018-03-22] MEDS ORDERED: Sodium Chloride 0.9% 2 ML Flush BID IV.FLUSH SCH (09:00)
[2018-03-22] MEDS ORDERED: Influenza (Quadrivalent) Vaccine 0.5 ML Syringe IM ONE (11:45)
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
[2018-03-22 16:13] VITALS: BP 102/55; PULSE 80; TEMP 97.7; O2SAT 100
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
== END 2018-03-22 17:47 | disposition home or self-care (01) ==
LOC: NEPE 07:46 → NEDA 11:03 → N04 14:04 → N07 18:04
PROVIDERS: ADMIT Surgery; ATTEND Surgery